=== PATIENT | female | born 1985 | race Caucasian/White ===

== ENCOUNTER 2020-01-23 12:55 | Emergency (ER) | payer OTHER, SELFPAY ==
[2020-01-23 12:57] VITALS: BP 136/77; RESP 105; TEMP 36.8; O2SAT 100
--- NOTE | 2020-01-23 13:06 | ECG_ITS ---
Measurements Intervals [place] Rate: 112 P: 70 ME: 188 QRS: 51 QRSD: 98 T: 43 QT: 322 QTc: 441 Interpretive Statements SINUS TACHYCARDIA ABNORMAL ECG Electronically Signed On 01-23-2020 17:36:24 CDT by Alfred Chavez D.O.
--- NOTE | 2020-01-23 13:32 | ED.ANXIETY ---
HPI - Anxiety General Chief Complaint: Anxiety Stated Complaint: syncope Time Seen by Provider: 01/23/20 13:07 Source: patient Mode of arrival: ambulatory Limitations: no limitations History of Present Illness HPI narrative: Patient is a 34-year-old female who presents to emergency department for evaluation of anxiety and panic attack with history of anxiety and depression managed by primary care has had increasing stresses denies suicidal or homicidal ideation on arrival is anxious and tearful notes multiple sources for anxiety and stress. Has been working long days and is exhausted. Patient otherwise in no distress does not appear uncomfortable Related Data Home Medications Medication Instructions Recorded Confirmed clonazepam 1 mg PO TID PRN 01/23/20 01/23/20 lamotrigine 25 mg PO HS 01/23/20 01/23/20 Allergies Allergy/AdvReac Type Severity Reaction Status Date / Time latex Allergy Unknown Unknown Verified 01/23/20 13:01 Review of Systems Review of Systems: All systems reviewed & are unremarkable except as noted in HPI and below PMFSH Past Medical History Medical History (Updated 01/23/20 @ 13:34 by Eduardo Riojas PA-C) Anxiety Depression Surgical History Surgical History H/O section Family History Family History (Updated 10/28/15 @ 23:19 by DOCTOR UNKNOWN) Mother Family history of diabetes mellitus in first degree relative Grandparent Family history of malignant neoplasm of urinary bladder Social History Social History Smoking status: Never smoker Exam Narrative: Exam Narrative: GENERAL: Well-appearing, well-nourished, and in no acute distress. HEAD: Normocephalic, atraumatic. EYES: PERRLA and EOMI. ENT: Nares clear, no rhinorrhea or epistaxis. Mucous membranes moist. CHEST: Clear to auscultation. No respiratory distress. No wheezes rales or rhonchi HEART: Regular rate and rhythm. No murmur heard. Normal peripheral pulses. ABDOMEN: Soft, nontender, nondistended EXTREMITIES: Normal range of motion. No edema. SKIN: Warm, dry, no rash. NEURO: No focal deficits. Alert and oriented x3. Cranial nerves II through XII grossly intact PSYCH: Acutely anxious with normal affect and tearful Course Course Emergency Course: Patient in the room in no distress aware of case findings treatment plan diagnosis given medication emergency department felt appropriate for outpatient reevaluation by primary care Vital Signs Vital signs: Vital Signs Temperature 98.2 F 01/23/20 12:57 Respiratory Rate 105 H 01/23/20 12:57 Blood Pressure 136/77 01/23/20 12:57 Pulse Oximetry 100 01/23/20 12:57 Temperature 98.2 F 01/23/20 12:57 Respiratory Rate 105 H 01/23/20 12:57 Blood Pressure 136/77 01/23/20 12:57 Pulse Oximetry 100 01/23/20 12:57 MDM - Anxiety MDM Narrative Medical decision making narrative: Patient with anxiety in the room in no distress resting comfortably felt appropriate for outpatient reevaluation given reasons to return Discharge Plan Discharge Clinical Impression: Acute anxiety, Panic disorder Patient Disposition: Home, Self-Care Condition: Stable Instructions: Antibiotic Form, Anxiety (ED) Additional Instructions: Follow up with your primary care doctor in 5-7 days for re-evaluation. Go to ER for worsening pain, vision changes, nausea/vomiting, fever/chills, weakness, chest pain, shortness of breath, numbness/tingling, slurred speech, difficulty walking, change in mental status etc. or any other concerns. Take any prescribed medications as directed. Prescriptions: No Action clonazepam 1 mg tablet 1 mg PO TID PRN (Reason: Anxiety) RF: 0 lamotrigine 25 mg tablet 25 mg PO HS RF: 0 Follow-up/Referrals: PHYSICIAN,PENSION ADMINISTRATOR [Primary Care Provider] - Stand Alone Forms: Work/School Release IP
[2020-01-23] MEDS: LORazepam INJ (*CRX) 2 MG/ML VIAL 1 MG IV PUSH (14:12)
[2020-01-23 14:13] VITALS: BP 129/67; PULSE 116; RESP 18; O2SAT 98
[2020-01-23 14:41] VITALS: BP 134/84; PULSE 112; RESP 18; O2SAT 99
== END 2020-01-23 14:43 | disposition home or self-care (01) ==
PROVIDERS: Emergency Provider Emergency Medicine
DX: F41.0 Panic disorder [episodic paroxysmal anxiety] (principal); F32.9 Major depressive disorder, single episode, unspecified; R00.0 Tachycardia, unspecified
CPT/HCPCS: 93005; 96374; 99284; J2060